=== PATIENT | male | born 1945 | race American Indian/Alaskan Native ===

== ENCOUNTER → 2019-06-06 08:45 | Outpatient (CLI) | payer MEDICARE, OTHER, SELFPAY ==
--- NOTE | 2019-06-06 | DI.ECHO.S_ITS ---
[facility]---------+ [facility] +---------+ : : [address] [place] : : : : [id number] : : : : Phone: [phone] +---------+ Echocardiogram Report + + :Name: MODE MEDEROS Study Date: 06/06/2019 Height: 69 in : :[facility] Weight: 189 lb : : Gender: Male BSA: 2.0 m2 : :: 1945 Age: 73 yrs BP: 132/64 mmHg: :Reason For Study: SOB : :Ordering Physician: Edwin S : :Justin Garcia Performed By: AH : :Referring: EDWIN GARCIA : + + Interpretation Summary The left ventricle is normal in size. The ejection fraction is estimated to be 55-60%. In some of the views there is a mid septal hypokinesis. The right ventricle is normal in size and function. No significant valvular pathology seen. The IVC is of normal diameter and collapses greater than 50% with a sniff. This suggests a low right atrial pressure of 3 mm Hg. Procedure: A two-dimensional transthoracic echocardiogram with color flow and Doppler was performed. There is no prior echocardiogram noted for this patient. The study quality was technically adequate. The patient was in sinus bradycardia with heart rates between 49-64 bpm during the exam. The patient had occasional PVCs during the exam. Left Ventricle: The left ventricle is normal in size. Left ventricular wall thickness is mildly increased. There is no thrombus. The ejection fraction is estimated to be 55-60%. In some of the views there is a mid septal hypokinesis. Diastolic parameters suggest a relaxation abnormality of the left ventricle, consistent with probable normal filling pressures. Right Ventricle: The right ventricle is normal in size and function. Atria: The left atrium is moderately dilated. The right atrium is moderately dilated. The interatrial septum is intact with no evidence for an atrial septal defect. Mitral Valve: There is mild mitral annular calcification. There is trace mitral regurgitation. Aortic Valve: The aortic valve is trileaflet. The aortic valve opens well. There is mild aortic valve sclerosis. There is no aortic valve stenosis. No aortic regurgitation is present. Tricuspid Valve: The tricuspid valve is normal in structure and function. There is trace tricuspid regurgitation. The right ventricular systolic pressure is estimated to be at least 20 mmHg based on an estimated right atrial pressure of 3 mm Hg. Pulmonic Valve: The pulmonic valve is normal in structure and function. There is trace pulmonic regurgitation. Great Vessels: The aortic root is normal size. The ascending aorta is at the upper limits of normal in size. The IVC is of normal diameter and collapses greater than 50% with a sniff. This suggests a low right atrial pressure of 3 mm Hg. Pericardium/ Pleura There is no pericardial effusion. There is no pleural effusion. MMode/2D Measurements & Calculations LVIDd: 4.5 cm LVOT diam: 2.3 cm LVIDs: 2.9 cm Ao root diam: 2.6 cm FS: 35.1 % asc Aorta Diam: 3.6 cm EPSS: 1.6 cm Ao Arch Diam (Prox Trans): 2.9 cm IVSd: 1.1 cm LVPWd: 1.1 cm LV acevedo. diameter/BSA (cm/m^2): 2.3 LV sys. diameter/BSA (cm/m^2): 1.5 LA A2 area: 23.4 cm2 RA long axis: 5.6 cm LA A4 area: 25.8 cm2 RA area: 23.9 cm2 LA length (vol): 6.1 cm RA vol: 86.6 ml LA vol: 83.7 ml RA : 42.9 ml/m2 LA vol index: 41.5 ml/m2 IVC diam: 1.8 cm TAPSE: 1.7 cm Doppler Measurements & Calculations Ao V2 max: 157.9 cm/sec LVOT Max Emigdio: 82.0 cm/sec Ao V2 mean: 108.1 cm/sec LV V1 max P.7 mmHg Ao max P.0 mmHg LV V1 VTI: 18.3 cm Ao mean P.4 mmHg YOSI(I,D): 2.5 cm2 Ao V2 VTI: 32.4 cm YOSI(V,D): 2.2 cm2 sev ratio: 0.57 YOSI indexed to BSA (cm^2/m^2): 1.2 MV E max emigdio: 60.1 cm/sec TR max emigdio: 208.8 cm/sec MV A max emigdio: 90.3 cm/sec TR max P.4 mmHg MV E/A: 0.67 PA V2 max: 79.5 cm/sec Med Peak E' Emigdio: 5.9 cm/sec PA V2 mean: 55.6 cm/sec E/E' med: 10.2 PA mean P.4 mmHg Lat Peak E' Emigdio: 9.3 cm/sec PA pr(Accel): 31.6 mmHg E/E' lat: 6.5 PA Accel Time: 0.12 sec E/e' average: 8.3 MV dec time: 0.34 sec SVLVOT): 79.4 ml Reading Physician:04:[id number] PM
== END ==
PROVIDERS: PCP Physician Assistant; Visit Provider Internal Medicine Cardiovascular Disease
DX: I35.8 Other nonrheumatic aortic valve disorders (principal); R06.02 Shortness of breath; I70.0 Atherosclerosis of aorta
CPT/HCPCS: 93306

== ENCOUNTER → 2022-08-25 07:47 | Outpatient (CLI) | payer MEDICARE, OTHER, SELFPAY ==
--- NOTE | 2022-08-25 07:51 | DI.ECHO.S_ITS ---
[facility] +---------+ [facility] +---------+ : : [address] : : : : [id number] : : : : Phone: [phone] +---------+ Echocardiogram Report + + :Name: MODE MEDEROS Study Date: 08/25/2022 Height: 69 in : :[facility] ReadingLocation: Weight: 170 lb : : Gender: Male BSA: 1.9 m2 : :: 1945 Age: 76 yrs BP: 112/65 mmHg: :Reason For Study: PRESENCE OF AORTOCORONARY BYPASS GRAFT HR: [id number] : :Ordering Physician: CHUCKY, : :MIKIE Performed By: JAI CALIX : :Referring: MIKIE LOCKE : + + Interpretation Summary The left ventricle is moderately dilated. Left ventricular systolic function is severely reduced. The ejection fraction is estimated to be 15-20%. There is severe global hypokinesis of the left ventricle. The right ventricle is mildly dilated. Right ventricular systolic function is severely reduced. There is severe mitral regurgitation. There is moderate to severe tricuspid regurgitation. The right ventricular systolic pressure is estimated to be at least 42 mmHg based on an estimated right atrial pressure of 3 mm Hg. Compared to prior echo report on 2021, changes are noted. Procedure: A two-dimensional transthoracic echocardiogram with color flow and Doppler was performed. The study quality was technically adequate. Comparison is made with the echocardiogram of 02/12/2022. The patient was in a tachycardic rhythm during the exam. Left Ventricle: The left ventricle is moderately dilated. There is normal left ventricular wall thickness. Left ventricular systolic function is severely reduced. The ejection fraction is estimated to be 15-20%. There is severe global hypokinesis of the left ventricle. Right Ventricle: The right ventricle is mildly dilated. Right ventricular systolic function is severely reduced. Atria: The left atrium is severely dilated. The right atrium is severely dilated. There is no Doppler evidence for an interatrial shunt. Mitral Valve: There is mild mitral annular calcification. There is severe mitral regurgitation. Aortic Valve: The aortic valve is trileaflet. There is moderate aortic valve sclerosis. There is mildly reduced leaflet mobility. The peak aortic velocity is 1.8 m/sec. The aortic valve mean gradient is 8 mmHg. The aortic valve area indexed to the BSA is 0.72 . There is trace aortic regurgitation. Tricuspid Valve: The tricuspid valve is normal. There is moderate to severe tricuspid regurgitation. The right ventricular systolic pressure is estimated to be at least 42 mmHg based on an estimated right atrial pressure of 3 mm Hg. Pulmonic Valve: The pulmonic valve leaflets are thin and pliable; valve motion is normal. There is moderate pulmonic regurgitation. Great Vessels: The aortic root is normal size. The ascending aorta could not be visualized. The IVC is of normal diameter and collapses greater than 50% with a sniff. This suggests a low right atrial pressure of 3 mm Hg. Pericardium/ Pleura There is a trivial pericardial effusion noted. There is no pleural effusion. MMode/2D Measurements & Calculations LVIDd: 6.0 cm LVOT diam: 1.8 cm LVIDs: 5.4 cm Ao root diam: 3.1 cm FS: 10.0 % IVSd: 0.80 cm LVPWd: 1.1 cm LV acevedo. diameter/BSA (cm/m^2): 3.1 LV sys. diameter/BSA (cm/m^2): 2.8 LA A2 area: 24.9 cm2 RA long axis: 6.2 cm LA A4 area: 24.0 cm2 IVC diam: 2.0 cm LA length (vol): 5.6 cm LA vol: 90.6 ml LA vol index: 47.0 ml/m2 RVD1 (basal): 4.2 cm LVLs ap4: 8.8 cm LVLd ap2: 9.5 cm TAPSE_phl: 0.73 cm LVLs ap2: 8.8 cm Doppler Measurements & Calculations Ao V2 max: 176.0 cm/sec LVOT Max Emigdio: 101.0 cm/sec Ao V2 mean: 132.0 cm/sec LV V1 max P.1 mmHg Ao max P.4 mmHg LV V1 VTI: 17.0 cm Ao mean P.0 mmHg YOSI(I,D): 1.4 cm2 Ao V2 VTI: 31.1 cm YOSI(V,D): 1.5 cm2 sev ratio: 0.55 YOSI indexed to BSA (cm^2/m^2): 0.72 MV E max emigdio: 168.0 cm/sec TR max emigdio: 311.0 cm/sec MV A max emigdio: 64.7 cm/sec TR max P.7 mmHg MV E/A: 2.6 PA V2 max: 76.0 cm/sec Med Peak E' Emigdio: 4.9 cm/sec PA V2 mean: 52.5 cm/sec E/E' med: 34.1 PA mean P.0 mmHg Lat Peak E' Emigdio: 7.1 cm/sec PA pr(Accel): 39.4 mmHg E/E' lat: 23.8 E/e' average: 28.9 MV dec time: 0.12 sec MV P1/2t: 17.7 msec MVA(VTI): 2.9 cm2 MV V2 mean: 56.7 cm/sec MV P1/2t max emigdio: 108.0 cm/sec MV mean P.0 mmHg MVA(P1/2t): 12.4 cm2 MV V2 VTI: 15.1 cm MR VTI: 137.0 cm SV(LVOT): 43.3 ml AV VR_phl: 0.49 MV P1/2t-pr_phl: 62.0 msec YOSI(VTI)/BSA_phl: 0.62 Reading Physician:01:37 PM
== END ==
PROVIDERS: PCP Physician Assistant; Visit Provider Nurse Practitioner Family
DX: I25.810 Atherosclerosis of coronary artery bypass graft(s) without angina pectoris (principal); Z95.1 Presence of aortocoronary bypass graft; I08.3 Combined rheumatic disorders of mitral, aortic and tricuspid valves
CPT/HCPCS: 93306